=== PATIENT | male | born 1965 | race Caucasian/White ===

== ENCOUNTER 2020-01-11 18:12 | Emergency (ER) | payer OTHER, BC ==
[2020-01-11 19:40] VITALS: BP 163/95
[2020-01-11 19:48] LABS: Influenza A Molecular Negative (Negative); Influenza B Molecular Negative (Negative)
[2020-01-11] MEDS ORDERED: Erythromycin OPTH OINT* APPLIC OINT LEFT EYE ONE (20:40)
[2020-01-11] MEDS ORDERED: guaiFENesin/CODIENE 100mg/10mg 5 ML UDC PO ONE (20:40)
--- NOTE | 2020-01-11 22:04 | UC ---
Respiratory Complaint HPI - HPI Summary HPI Summary: 3 DAYS OF COUGH, NASAL CONGESTION/STUFFINESS, CHILLS, HOT FLASHES AND FATIGUE. HAS MILD SCRATCHY THROAT AND POSTNASAL DRAINAGE. NO BODY ACHES OR HEADACHES. STATES HE IS NOT SLEEPING DUE TO THE COUGH AND CONGESTION. THIS AFTERNOON WAS BLOWING HIS NOSE AGGRESSIVELY TRYING TO CLEAR THE CONGESTION AND HIS LEFT EYE SUDDENLY BECAME RED. HE DENIES ANY VISUAL DISTURBANCES. STATES THE EYE IS A LITTLE IRRITATED. HE DENIES ANY RECENT TRAVEL. NO EXPOSURE TO COVID-19. - History of Current Complaint Chief Complaint: UCGeneralIllness Stated Complaint: RESP COMPLAINT Time Seen by Provider: 01/11/20 18:22 Hx Obtained From: Patient Onset/Duration: Gradual Onset, Lasting Days, Still Present Timing: Constant Severity Initially: Moderate Severity Currently: Moderate Pain Intensity: 2 Pain Scale Used: 0-10 Numeric Character: Cough: Nonproductive Aggravating Factors: Nothing Alleviating Factors: Nothing Associated Signs And Symptoms: Positive: Chills, URI, Nasal Congestion. Negative: Dyspnea - Allergies/Home Medications Allergies/Adverse Reactions: Allergies Allergy/AdvReac Type Severity Reaction Status Date / Time No Known Allergies Allergy Verified 01/11/20 19:38 Home Medications: Home Medications Ibuprofen TAB* [Advil TAB*] 200 mg PO Q6H PRN 10/22/16 [History Confirmed ] Codeine Phosphate/Guaifenesin [Codeine-Guaifen 10-100 mg/5 ml] 5 - 10 ml PO Q6H PRN #150 ml MDD 40ML 01/11/20 [Rx] Erythromycin OPHTH.OINT* [Ilotycin OPHTH.OINT*] 1 applic LEFT EYE QID #1 tube [Rx] Montelukast Sodium TAB* [Singulair 10 MG TAB*] 1 tab PO DAILY 01/11/20 [History Confirmed 01/11/20] Oxymetazoline 0.05% NASAL SPR* [Afrin 0.05% NASAL SPRAY*] 2 spray NASAL Q12H #1 btl 01/11/20 [Rx] PMH/Surg Hx/FS Hx/Imm Hx - Additional Past Medical History Additional PMH: ALLERGIES - Surgical History Surgical History: Yes Surgery Procedure, Year, and Place: gallbladder - Family History Known Family History: Positive: Diabetes - Social History Alcohol Use: None Substance Use Type: None Smoking Status (MU): Never Smoked Tobacco - Immunization History Most Recent Tetanus Shot: 2010 Review of Systems All Other Systems Reviewed And Are Negative: Yes Constitutional: Positive: Chills, Fatigue ENT: Positive: Sore Throat, Nasal Discharge Respiratory: Positive: Cough Cardiovascular: Positive: Negative Gastrointestinal: Positive: Negative Physical Exam Triage Information Reviewed: Yes Appearance: Well-Appearing, No Pain Distress, Well-Nourished Vital Signs: Initial Vital Signs Temp 99.4 F 01/11/20 19:11 Pulse 97 01/11/20 19:11 Resp 17 01/11/20 19:11 BP 163/95 01/11/20 19:11 Pulse Ox 100 01/11/20 19:11 Eyes: Positive: Conjunctiva Inflamed, Other: - PERRL, EOMI. Negative: Discharge ENT: Positive: Hearing grossly normal, Pharyngeal erythema, TMs normal Neck: Positive: Supple, Nontender, No Lymphadenopathy Respiratory Exam: Normal Cardiovascular Exam: Normal Abdomen Description: Positive: Soft Musculoskeletal: Positive: No Edema Neurological: Positive: Alert Psychological: Positive: Age Appropriate Behavior Skin: Negative: Rashes Respiratory Course/Dx - Course Course Of Treatment: STREP NEGATIVE. FLU NEGATIVE. PATIENT LIKELY HAS A VIRALLY MEDIATED URI AND SX SHOULD RESOLVE WITH TIME. ADVISED OTC AFRIN FOR NASAL CONGESTION. COUGH MEDICINE PRESCRIBED. ADVISED TO FOLLOW-UP IF NOT IMPROVING OVER THE NEXT WEEK OR SO. ALSO DISCUSSED WITH PATIENT THAT WHILE I AM UNABLE TO SAY WITH COMPLETE CERTAINTY THAT HE DOES NOT HAVE COVID-19, I HAVE A VERY LOW INDEX OF SUSPICION FOR THIS CONDITION. HIS PRESENTATION IS MUCH MORE CONSISTENT WITH A STANDARD VIRAL URI THAN WITH CONSTANTINO VIRUS. AT THIS TIME I WOULD NOT RECOMMEND TESTING. PATIENT IS IN AGREEMENT WITH THIS ASSESSMENT. ERYTHROMYCIN OINTMENT FOR HIS EYE TO HELP KEEP IT LUBRICATED AND PREVENT DUST AND DEBRIS FROM ENTERING. PT WORKS IN BUILDING MAINTENANCE. ENCOURAGED HIM TO WEAR EYE PROTECTION WHILE AT WORK UNTIL HIS SYMPTOMS HAVE RESOLVED. FOLLOW-UP WITH AN EYE DOCTOR IF HE DEVELOPS PAIN, VISUAL DISTURBANCE OR ANY OTHER CONCERNING SYMPTOMS. - Differential Dx/Diagnosis Provider Diagnosis: Upper respiratory infection, Subconjunctival hemorrhage of left eye Discharge ED - Sign-Out/Discharge Documenting (check all that apply): Patient Departure All imaging exams completed and their final reports reviewed: No Studies - Discharge Plan Condition: Stable Disposition: HOME Prescriptions: Codeine Phosphate/Guaifenesin [Codeine-Guaifen 10-100 mg/5 ml] 5 - 10 ml PO Q6H PRN #150 ml MDD 40ML PRN Reason: Cough Erythromycin OPHTH.OINT* [Ilotycin OPHTH.OINT*] 1 applic LEFT EYE QID #1 tube Oxymetazoline 0.05% NASAL SPR* [Afrin 0.05% NASAL SPRAY*] 2 spray NASAL Q12H #1 btl Patient Education Materials: Subconjunctival Hemorrhage (ED), Upper Respiratory Infection (ED) Referrals: Moira De La Garza MD [Primary Care Provider] - If Needed Arthur Richmond MD [Medical Doctor] - If Needed Additional Instructions: FLU NEGATIVE, STREP NEGATIVE. YOUR SYMPTOMS ARE LIKELY VIRALLY MEDIATED AND SHOULD RESOLVE ON THEIR OWN WITH TIME. NO INDICATION FOR ANTIBIOTICS AT PRESENT. REST, HYDRATE, OTC MEDS NEEDED. SEEK FOLLOW-UP IF YOU ARE NOT IMPROVING OVER THE NEXT 1-2 WEEKS. USE AFRIN FOR NASAL CONGESTION IF NEEDED. 2 SPRAYS IN EACH NOSTRIL TWICE DAILY NEEDED. DO NOT USE FOR MORE THAN 3-4 DAYS IN A ROW TO PREVENT DEVELOPING REBOUND CONGESTION. IF YOU ONLY USE IT ONCE DAILY YOU CAN EXTEND TO ABOUT 5 DAYS. I BELIEVE YOU HAVE SOME BURST BLOOD VESSELS IN YOUR EYE DUE TO THE AGGRESSIVE NOSE BLOWING. TRY TO CLEAR YOUR NOSTRILS MORE GENTLY. APPLY OINTMENT TO THE EYE 4 TIMES DAILY FOR PROTECTIVE PURPOSES AND WEAR SAFETY GOGGLES WHILE AT WORK. FOLLOW-UP WITH AN EYE DOCTOR IMMEDIATELY IF YOU HAVE ANY CHANGES IN YOUR VISION, INCREASING PAIN, NAUSEA OR ANY OTHER CONCERNING SYMPTOMS. WE DISCUSSED I CANNOT SAY WITH ABSOLUTE CERTAINTY THAT YOU DO NOT HAVE COVID 19 HOWEVER YOUR PRESENTATION IS MORE CONSISTENT WITH A VIRAL UPPER RESPIRATORY INFECTION. I DO NOT RECOMMEND TESTING AT THIS TIME. - Billing Disposition and Condition Condition: STABLE Disposition: Home
== END 2020-01-11 20:47 | disposition home or self-care (01) ==
LOC: UCEAST 18:12
DX: J06.9 Acute upper respiratory infection, unspecified (principal); H11.32 Conjunctival hemorrhage, left eye
CPT/HCPCS: 87651; 99213; A9270-GY; G0463

== ENCOUNTER 2020-01-13 07:18 | Emergency (ER) | payer BC, OTHER ==
[2020-01-13 07:56] VITALS: BP 125/81
--- NOTE | 2020-01-13 08:11 | UC ---
Throat Pain/Nasal Tony HPI - HPI Summary HPI Summary: 54-year-old male comes in with a chief complaint of sinus pressure and bilateral eye drainage. Patient was seen here 3 days ago with right eye drainage and he was started on erythromycin antibiotic ointment for the right eye. Also started on Kuldeep-Synephrine. Since that time is gotten worse his sinuses are more clogged he's got yellow rhinorrhea is get sinus pressure now he is pressure in both eyes and the drainage and the redness is spread to the left eye also. No fevers. No bodyaches. No known contact with anybody with covid 19. - History of Current Complaint Chief Complaint: UCEye Stated Complaint: RESPIRATORY COMPLAINT,EYE IRRITATION Time Seen by Provider: 01/13/20 07:46 Pain Intensity: 7 - Allergies/Home Medications Allergies/Adverse Reactions: Allergies Allergy/AdvReac Type Severity Reaction Status Date / Time No Known Allergies Allergy Verified 01/13/20 07:44 Home Medications: Home Medications Ibuprofen TAB* [Advil TAB*] 200 mg PO Q6H PRN 10/22/16 [History Confirmed ] Codeine Phosphate/Guaifenesin [Codeine-Guaifen 10-100 mg/5 ml] 5 - 10 ml PO Q6H PRN #150 ml MDD 40ML 01/11/20 [Rx Confirmed 01/13/20] Erythromycin OPHTH.OINT* [Ilotycin OPHTH.OINT*] 1 applic LEFT EYE QID #1 tube [Rx Confirmed 01/13/20] Montelukast Sodium TAB* [Singulair 10 MG TAB*] 1 tab PO DAILY 01/11/20 [History Confirmed 01/13/20] Oxymetazoline 0.05% NASAL SPR* [Afrin 0.05% NASAL SPRAY*] 2 spray NASAL Q12H #1 btl 01/11/20 [Rx Confirmed 01/13/20] Amoxicillin/Clavulanate TAB* [Augmentin TAB 875*] 875 mg PO BID #20 tab [Rx] Fluticasone NASAL SPRAY 50MCG* [Flonase NASAL SPRAY 50MCG*] 2 spray BOTH NARES DAILY #1 btl 01/13/20 [Rx] Tobramycin 0.3% OPHTH.TONIA* 1 drop BOTH EYES Q4H #1 btl 01/13/20 [Rx] PMH/Surg Hx/FS Hx/Imm Hx Previously Healthy: Yes - Surgical History Surgical History: Yes Surgery Procedure, Year, and Place: gallbladder - Family History Known Family History: Positive: Diabetes - Social History Alcohol Use: None Substance Use Type: None Smoking Status (MU): Never Smoked Tobacco - Immunization History Most Recent Tetanus Shot: 2010 Review of Systems All Other Systems Reviewed And Are Negative: Yes Constitutional: Positive: Other - see hpi Skin: Positive: Negative Eyes: Positive: Other - see hpi ENT: Positive: Nasal Discharge, Sinus Congestion, Sinus Pain/Tenderness Respiratory: Positive: Negative Cardiovascular: Positive: Negative Gastrointestinal: Positive: Negative Motor: Positive: Negative Neurovascular: Positive: Negative Musculoskeletal: Positive: Negative Neurological/Mental Status: Positive: Negative Psychological: Positive: Negative Is Patient Immunocompromised?: No Physical Exam Triage Information Reviewed: Yes Appearance: No Pain Distress, Well-Nourished, Ill-Appearing - mild Vital Signs: Initial Vital Signs Temp 98.3 F 01/13/20 07:38 Pulse 84 01/13/20 07:38 Resp 14 01/13/20 07:38 BP 125/81 01/13/20 07:38 Pulse Ox 98 01/13/20 07:38 Vital Signs Reviewed: Yes Eyes: Positive: Other: - Bilateral scleral injection and drainage from both eyes. PERRLA EOMI. ENT: Positive: Pharyngeal erythema, Nasal congestion, Nasal drainage Neck: Positive: Supple Respiratory: Positive: No respiratory distress Musculoskeletal: Positive: Strength Intact, ROM Intact Neurological: Positive: Alert, Muscle Tone Normal Psychological: Positive: Age Appropriate Behavior Skin Exam: Normal Throat Pain/Nasal Course/Dx - Course Course Of Treatment: Most rolled cause for the spread of the infection to both eyes is now patient has a sinusitis and his sinuses are not draining. I asked the patient to stop using the Kuldeep-Synephrine and switch to Flonase and exposure to steam to loosen up the sinuses so they can drain so that the eyes can also drain. Also switched over to tobramycin eyedrops. Treat the sinusitis with Augmentin. At this time patient does not have obvious symptoms of Covid 19. Patient is to get reevaluated by his primary care doctor or ophthalmology if not improving or worse. - Differential Dx/Diagnosis Provider Diagnosis: Conjunctivitis, Sinusitis Discharge ED - Sign-Out/Discharge Documenting (check all that apply): Patient Departure All imaging exams completed and their final reports reviewed: No Studies - Discharge Plan Condition: Stable Disposition: HOME Prescriptions: Amoxicillin/Clavulanate TAB* [Augmentin TAB 875*] 875 mg PO BID #20 tab Fluticasone NASAL SPRAY 50MCG* [Flonase NASAL SPRAY 50MCG*] 2 spray BOTH NARES DAILY #1 btl Tobramycin 0.3% OPHTH.TONIA* 1 drop BOTH EYES Q4H #1 btl Patient Education Materials: Sinusitis (ED), Conjunctivitis (ED) Referrals: Moira De La Garza MD [Primary Care Provider] - [facility] [Provider Group] Additional Instructions: FOLLOW UP WITH YOUR PRIMARY CARE DOCTOR OR OPHTHALMOLOGY IF NOT COMPLETELY IMPROVED. GET REEVALUATED IF NOT IMPROVED OR WORSE OR ANY QUESTIONS OR CONCERNS. - Billing Disposition and Condition Condition: STABLE Disposition: Home
== END 2020-01-13 08:18 | disposition home or self-care (01) ==
LOC: UCEAST 07:18
DX: H10.33 Unspecified acute conjunctivitis, bilateral (principal); J32.9 Chronic sinusitis, unspecified
CPT/HCPCS: 99212; G0463